=== PATIENT | female | born 2000 | race Caucasian/White ===

== ENCOUNTER 2024-10-01 11:34 | Emergency (ER) | payer SELFPAY | END 2024-10-01 12:56 | disposition home or self-care (01) | LOC: MERGE 11:34 → MW.ED 11:34 | DX: S61.411A Laceration without foreign body of right hand, initial encounter (principal); X58.XXXA Exposure to other specified factors, initial encounter | CPT/HCPCS: 12001; 99282 ==

== ENCOUNTER 2024-10-09 12:30 | Emergency (ER) | payer MEDICAID | END 2024-10-09 13:44 | disposition home or self-care (01) | LOC: MW.ED 12:30 | DX: S61.411D Laceration without foreign body of right hand, subsequent encounter (principal); X58.XXXD Exposure to other specified factors, subsequent encounter | CPT/HCPCS: 99281 ==